=== PATIENT | male | born 1995 | race American Indian/Alaskan Native ===

== ENCOUNTER 2018-12-31 00:37 | Emergency (ER) | payer SELFPAY ==
[2018-12-31 00:48] VITALS: BP 127/75
== END 2018-12-31 07:00 | disposition left against medical advice (07) ==
LOC: ED 00:37
DX: J00 Acute nasopharyngitis [common cold] (principal); Z53.21 Procedure and treatment not carried out due to patient leaving prior to being seen by health care provider

== ENCOUNTER 2019-01-04 08:31 | Outpatient (CLI) | payer BC ==
[2019-01-04 12:05] LABS: Hematocrit 39.2 % (35.5-45.6); Hemoglobin 13.5 gm/dl (11.8-15.2); Mean Corpuscular HGB Conc 35 % (32-34); Mean Corpuscular Volume 88 fl (84-94); Platelet Count 307 K/mm3 (140-440); Red Blood Count 4.46 M/mm3 (3.65-5.03); Red Cell Distribution Width 13.7 % (13.2-15.2)
[2019-01-04 12:16] LABS: Alanine Aminotransferase 14 units/L (7-56); Albumin 4.3 g/dL (3.9-5); BUN/Creatinine Ratio 8; Blood Urea Nitrogen 6 mg/dL (9-20); Calcium 9.3 mg/dL (8.4-10.2); Chol/HDL Ratio 3.57 %; HDL Cholesterol 33 mg/dL (40-59); Hemolysis Index 2; LDL Cholesterol,Direct 80 mg/dL (50-130)
[2019-01-04 12:46] LABS: Basophils % (Manual) 0 % (0.0-1.8); Eosinophils % (Manual) 0 % (0.0-4.3); Total Cells Counted 100
[2019-01-04 12:47] LABS: Giant Platelets Rare; Large Platelets 1+; Platelet Estimate Consistent w Auto; RBC Morphology Normal
[2019-01-07 13:21] LABS: Vitamin D, 25-OH, D2 <4 ng/mL
== END 2019-01-04 08:32 | disposition home or self-care (01) ==
LOC: LAB 08:31
PROVIDERS: ATTEND Internal Medicine
DX: Z13.1 Encounter for screening for diabetes mellitus (principal); Z00.01 Encounter for general adult medical examination with abnormal findings; Z13.220 Encounter for screening for lipoid disorders; Z13.21 Encounter for screening for nutritional disorder
CPT/HCPCS: 36415; 80053; 80061; 82306; 82607; 83036; 84443; 85007; 85025